=== PATIENT | male | born 1980 | race Caucasian/White ===

== ENCOUNTER 2017-03-15 09:47 | Emergency (ER) | payer SELFPAY ==
[2017-03-15 09:53] VITALS: BP 148/98; PULSE 89; RESP 18; TEMP 97.7; O2SAT 95
[2017-03-15] MEDS ORDERED: CHLORDIAZEPOXIDE 25MG PREPK#6 BTL TAKEHOME ONE (10:02)
[2017-03-15] MEDS ORDERED: chlordiazePOXIDE 25 MG CAP PO ONE (10:02)
[2017-03-15] MEDS ORDERED: ONDANSETRON DISINTEGRATING 4 MG TAB PO ONE (10:02)
--- NOTE | 2017-03-15 10:04 | EDPHY ---
H & P Smoking Status: Current every day smoker Time Seen by Provider: 03/15/17 09:58 HPI/ROS: CHIEF COMPLAINT: Acute alcohol withdrawal HISTORY OF PRESENT ILLNESS: 36-year-old male arrives via private vehicle accompanied by his uncle and his friend who performed in intervention for his history of alcoholism. Last drink of alcohol was last evening. He is complaining of nausea and tremor. Denies physical complaints of pain or discomfort.History of heavy daily alcohol use. No hallucination. No abdominal pain. REVIEW OF SYSTEMS: A ten point review of systems was performed and is negative with the exception of the items mentioned in the HPI PAST MEDICAL & SURGICAL HISTORY: Psoriasis SOCIAL HISTORY:last drink of alcohol last evening PHYSICAL EXAM (Prior to examination, patient consented to physical exam, hands were washed and my usual and customary physical exam procedures followed) 1) GENERAL: Well-developed, well-nourished, alert and oriented. Appears anxious 2) HEAD: Normocephalic, atraumatic 3) HEENT: Sclera anicteric. 4) NECK: Full range of motion, no meningeal signs. 5) LUNGS: Clear auscultation bilaterally, no wheezes, no rhonchi, no retractions. 6) HEART: Regular rate and rhythm, no murmur, no heave, no gallop. 7) ABDOMEN: No guarding, no rebound, no focal tenderness, negative McBurney's, negative Haile's, negative Rovsing's, negative peritoneal sign, I am unable to elicit any abdominal pain 8) MUSCULOSKELETAL: Tremulous No peripheral edema or discoloration. 9) BACK: no visual or palpable abnormality. 10) SKIN: No rash, no petechiae. 11) Psychiatric: Patient is oriented X 3, there is no agitation. Tremulous DIFFERENTIAL DIAGNOSIS: in no particular include but limited to acute alcohol withdrawal, alcohol withdrawal seizure, delirium tremens (Tracey Shore Delilah) Constitutional: Initial Vital Signs Temperature (C) 36.5 C 03/15/17 09:51 Heart Rate 89 03/15/17 09:51 Respiratory Rate 18 03/15/17 09:51 Blood Pressure 148/98 H 03/15/17 09:51 O2 Sat (%) 95 03/15/17 09:51 O2 Delivery Mode Room Air Allergies/Adverse Reactions: No Known Allergies Allergy (Unverified 03/15/17 09:50) Home Medications: Medication Instructions Recorded NK [No Known Home Meds] 03/15/17 MDM/Departure - MDM Medications Given: Discontinued Medications Chlordiazepoxide (Librium 25 Mg Prepack#6) 1 btl TAKEHOME EDNOW ONE Stop: 03/15/17 10:03 Last Admin: 03/15/17 10:06 Dose: 1 btl Chlordiazepoxide HCl (Librium) 25 mg PO EDNOW ONE Stop: 03/15/17 10:03 Last Admin: 03/15/17 10:07 Dose: 25 mg Ondansetron HCl (Zofran Odt) 4 mg PO EDNOW ONE Stop: 03/15/17 10:03 Last Admin: 03/15/17 10:07 Dose: 4 mg ED Course/Re-evaluation: Doubt delirium tremens. No seizure. [facility]. He is uncle and his friend are here and will take him back there. (Tracey Shore) The patient was not seen by me while he was in the emergency department. However his care was discussed with the PA while the patient was in the department. I agree with treatment plan and (Bruce James) - Depart Disposition: Home, Routine, Self-Care Clinical Impression: Alcohol withdrawal Qualifiers: Complication of substance-induced condition: uncomplicated Qualified Code(s): F10.230 - Alcohol dependence with withdrawal, uncomplicated Condition: Good Instructions: Chlordiazepoxide (By mouth), Alcohol Withdrawal (ED) Referrals: [facility] [Outside] - As per Instructions
== END 2017-03-15 10:07 | disposition home or self-care (01) ==
DX: F10.230 Alcohol dependence with withdrawal, uncomplicated (principal)